=== PATIENT | female | born 1970 | race Caucasian/White ===

== ENCOUNTER 2019-04-21 10:56 | Emergency (ER) | payer OTHER ==
[~2019-04-21] VITALS: Ht 160 cm; Wt 80.7 kg
[2019-04-21 11:00] VITALS: BP 142/79
--- NOTE | 2019-04-21 11:06 | NUR ---
TO ED 08 WITH STEADY GAIT.
--- NOTE | 2019-04-21 11:15 | NUR ---
PT BIB SELF C/O DRY COUGH X3 DAYS. PT REPORTS DRY COUGH, RR EVEN, NON-LABORED, BREATH SOUNDS CLEAR THROUGH OUT. DENIES N/V/D, OR FEVER. PT STATES SHE TAKES ORAL CHEMO MEDS FOR OVARIAN CANCER, HAD HYSTERECTOMY. VSS. ER TO SEE PT. MEDHX:HTN, OVARIAN CA RX:LISINOPRIL
--- NOTE | 2019-04-21 11:28 | NUR ---
ER AT BEDSIDE
[2019-04-21] MEDS ORDERED: guaiFENesin DM 200/20 MG-10 ML 10 ML UDC PO ONE (11:30)
--- NOTE | 2019-04-21 11:38 | NUR ---
PT RETURNED FROM X-RAY VIA W/C
[2019-04-21 12:15] VITALS: BP 130/78
--- NOTE | 2019-04-21 12:15 | NUR ---
Patient discharged with v/s stable. Written and verbal after care instructions given and explained. Patient alert, oriented and verbalized understanding of instructions. Ambulatory with steady gait. All questions addressed prior to discharge. ID band removed. Patient advised to follow up with PMD. Rx of TESSALON PERLES AND PROMETHAZINE DM given. Patient educated on indication of medication including possible reaction and side effects. Opportunity to ask questions provided and answered.
== END 2019-04-21 12:15 | disposition home or self-care (01) ==
LOC: MED 10:56
DX: J20.9 Acute bronchitis, unspecified (principal); I10 Essential (primary) hypertension; Z98.890 Other specified postprocedural states
CPT/HCPCS: 71046; 99283